=== PATIENT | female | born 1965 | race African-American/Black ===

== ENCOUNTER 2016-07-10 14:34 | Emergency (ER) | payer OTHER ==
--- NOTE | ~2016-07-10 | CR141 ---
[facility] A Service of [facility] & [facility] RADIOLOGY TEXT RESULTS PATIENT: CONCEPCIÓN MARCUM LOCATION: CFTX : 69 UNIT #: [id number] AGE: [address]: Jessica Feng APRN SEX: F ORDER DR: [id number] [facility] [address] [place], [place] [address] [id number] MR#: [id number] Acc #: [id number] NAME: CONCEPCIÓN MARCUM : 1965 SEX: F STUDY DATE/TIME: 07/10/2016 14:34 UNIT: [facility] ROOM: STUDY DESCRIPTION: CR Hand Min 3 Views Lt Attending Physician: Jessica Feng A.P.R.N. Ordering Physician: [facility] Primary Care Physician: Janes BurnettPPushpa MEDICAL IMAGING REPORT This report is preliminary unless electronic signature is present EXAM Left hand 3 views 07/10/2016 HISTORY Chronic hand pain for 8 months after injury. FINDINGS 3 views left hand demonstrate satisfactory bone alignment. Mild degenerative changes at the first CMC joint. No fracture, joint space narrowing or dislocation. Minimal hypertrophic changes at multiple IP joints. IMPRESSION No acute findings. 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 Dictated by... Mike Rios M.D. THIS IS AN ELECTRONICALLY VERIFIED REPORT Mike Rios M.D. at 07/10/2016 11:28 PM BRIAN/thomas TD: 07/10/2016 17:33 JOB #: [id number] MEDICAL IMAGING REPORT COPY
== END 2016-07-10 15:27 | disposition home or self-care (01) ==
LOC: CFTX 14:34
DX: M25.532 Pain in left wrist (principal); G89.29 Other chronic pain; F17.210 Nicotine dependence, cigarettes, uncomplicated
CPT/HCPCS: 73130; 99283

== ENCOUNTER 2016-08-06 21:09 | Emergency (ER) | payer OTHER | END 2016-08-06 22:08 | disposition home or self-care (01) | LOC: CED 21:09 | DX: M79.642 Pain in left hand (principal); G89.29 Other chronic pain; F17.210 Nicotine dependence, cigarettes, uncomplicated | CPT/HCPCS: 29125; 99283; J1885 ==